=== PATIENT | female | born 1990 | race Caucasian/White ===

== ENCOUNTER 2017-10-04 21:08 | Emergency (ER) | payer OTHER, MEDICAID ==
[~2017-10-04] VITALS: Ht 165.1 cm; Wt 102.1 kg
[~2017-10-04 21:08] MED LIST: ACETAMINOPHEN-1 EAC1 PO; CARAFATE1 GM/10 ML PO; MEDROLDOSEPACK PO; OMEPRAZOLE40 MG PO; PROAIR HFA8.5 GM INH; PROMETHAZINE D480 ML PO; TESSALON PERLE100 MG PO; ZOLOFT50 MG PO; ZPAK PO
[2017-10-04] MEDS ORDERED: PRENATAL (21:25)
[2017-10-04 21:56] LABS: INFLUENZA A ANTIGEN None Detected (None Detect)
[2017-10-04 21:57] LABS: INFLUENZA B ANTIGEN None Detected (None Detect)
[2017-10-04] MEDS ORDERED: TAMIFLU75 MG PO (22:12)
[2017-10-04 22:19] VITALS: BP 115/58
== END 2017-10-04 22:23 | disposition home or self-care (01) ==
LOC: M.ERS 21:08
PROVIDERS: Personal Emergency Response Attendant
DX: R05 Cough (principal); F41.9 Anxiety disorder, unspecified; Z88.1 Allergy status to other antibiotic agents